=== PATIENT | female | born 1950 | race Caucasian/White ===

== ENCOUNTER 2017-12-23 22:51 | Emergency (ER) | payer OTHER, MEDICAID ==
[~2017-12-23] VITALS: Ht 154.9 cm; Wt 76.2 kg
[~2017-12-23 22:51] MED LIST: A/B OTIC15 ML; CLINDAMYCIN HC300 MG PO; COG1 PO; COL100; DEP250; DEPAKOTE500 MG PO; KEP500 PO; KONSYL PO; LAC PO; LEVAQUIN500 MG PO; MEG40; OLANZAPINE10 MG PO; PRI20; PROMETHAZI6.25 MG/5 PO; RES15 PO; SEROQUEL100 MG PO; SEROQUEL50 M1 PO; SYN25; TRA50 PO; TRAZODONE100 MG PO; [UNRECOGNIZED DRUG - OTHER]; [UNRECOGNIZED DRUG - OTHER]
[2017-12-23 22:57] VITALS: Ht 154.9 cm; Wt 76.2 kg
[2017-12-24 01:07] VITALS: BP 108/58
== END 2017-12-24 01:08 | disposition home or self-care (01) ==
LOC: ED 22:51
DX: S01.01XA Laceration without foreign body of scalp, initial encounter (principal); S01.81XA Laceration without foreign body of other part of head, initial encounter; Z88.8 Allergy status to other drugs, medicaments and biological substances; W18.39XA Other fall on same level, initial encounter; Y93.01 Activity, walking, marching and hiking; Y92.89 Other specified places as the place of occurrence of the external cause; Y99.8 Other external cause status
CPT/HCPCS: 90715

== ENCOUNTER 2018-08-30 18:39 | Emergency (ER) | payer OTHER, MEDICAID ==
[~2018-08-30] VITALS: Ht 152.4 cm; Wt 63.5 kg
[2018-08-30 19:04] VITALS: Ht 152.4 cm; Wt 63.5 kg
[2018-08-30 20:14] LABS: PLATELET COUNT 220 x10^3mcL (130-400); RED CELL DISTRIBUTION WIDTH 12.5 % (11.5-14.5)
[2018-08-30 20:16] LABS: BASOPHIL % 4.4 % (0-2)
[2018-08-30 20:24] LABS: CALCIUM 9.5 mg/dL (8.5-10.1); CARBON DIOXIDE 27.4 mmol/L (21-32); CHLORIDE SERUM 102 mmol/L (98-107); CREATININE SERUM 0.9 mg/dL (0.6-1.0); GFR1 > 60 mL/min; GLUCOSE SERUM 121 mg/dL (74-106); SODIUM SERUM 137 mmol/L (136-145)
[2018-08-30 20:28] LABS: ALKALINE PHOSPHATASE 91 U/L (46-116); ALT/SGPT 14 U/L (14-59); AST/SGOT 8 U/L (15-37); BILIRUBIN TOTAL 0.13 mg/dL (0.20-1.00); TOTAL PROTEIN, SERUM 6.8 g/dL (6.4-8.2)
[2018-08-30 20:30] LABS: ALBUMIN 3.3 g/dL (3.4-5.0)
[2018-08-30] MEDS ORDERED: OLANZAPINE10 MG PO (20:48)
[2018-08-30] MEDS ORDERED: TRAZODONE100 MG PO (20:49)
[2018-08-30] MEDS ORDERED: SYNTHROID0.05 MG PO (20:49)
[2018-08-30] MEDS ORDERED: THICK-IT1 EACH PO (20:50)
[2018-08-30] MEDS ORDERED: LACTULOSE10 GM/152 PO (20:50)
[2018-08-30] MEDS ORDERED: AMO500 PO (20:51)
[2018-08-30 22:07] VITALS: BP 143/66
[2018-08-30 22:35] LABS: microscopic required? YES; urine erythrocyte NEGATIVE (NEGATIVE)
== END 2018-08-30 22:07 | disposition home or self-care (01) ==
LOC: ED 18:39
PROVIDERS: Emergency Medicine
DX: R11.10 Vomiting, unspecified (principal); R05 Cough; Z88.8 Allergy status to other drugs, medicaments and biological substances; R09.81 Nasal congestion
CPT/HCPCS: 36415; 36600; Q0092

== ENCOUNTER 2018-12-09 15:14 | Emergency (ER) | payer OTHER, MEDICAID ==
[~2018-12-09] VITALS: Ht 152.4 cm; Wt 66.2 kg
[~2018-12-09 15:14] MED LIST changes: +AMO500 PO; +LACTULOSE10 GM/152 PO; +SYNTHROID0.05 MG PO; +THICK-IT1 EACH PO
[2018-12-09 15:19] VITALS: Ht 152.4 cm; Wt 66.2 kg
[2018-12-09 16:57] LABS: BASOPHIL % 0.4 % (0-2); PLATELET COUNT 230 x10^3mcL (130-400); RED CELL DISTRIBUTION WIDTH 12.8 % (11.5-14.5)
[2018-12-09 17:05] LABS: CALCIUM 9.1 mg/dL (8.5-10.1); CARBON DIOXIDE 31.6 mmol/L (21-32); CHLORIDE SERUM 98 mmol/L (98-107); CREATININE SERUM 0.6 mg/dL (0.6-1.0); GFR1 > 60 mL/min; GLUCOSE SERUM 114 mg/dL (74-106); SODIUM SERUM 137 mmol/L (136-145)
[2018-12-09 17:11] LABS: ALBUMIN 3.4 g/dL (3.4-5.0); ALKALINE PHOSPHATASE 91 U/L (46-116); ALT/SGPT 19 U/L (14-59); AST/SGOT 12 U/L (15-37); BILIRUBIN TOTAL 0.2 mg/dL (0.20-1.00); TOTAL PROTEIN, SERUM 7.3 g/dL (6.4-8.2)
[2018-12-09 17:17] LABS: UA SPECIFIC GRAVITY <=1.005 (1.005-1.035); microscopic required? YES; urine erythrocyte NEGATIVE (NEGATIVE)
[2018-12-09 19:46] VITALS: BP 150/69
== END 2018-12-09 19:46 | disposition home or self-care (01) ==
LOC: ED 15:14
PROVIDERS: Emergency Medicine
DX: K80.20 Calculus of gallbladder without cholecystitis without obstruction (principal); Z88.8 Allergy status to other drugs, medicaments and biological substances
CPT/HCPCS: 36415; J7030

== ENCOUNTER 2019-10-28 20:12 | Emergency (ER) | payer OTHER, MEDICAID ==
[~2019-10-28] VITALS: Ht 152.4 cm; Wt 72.6 kg
[2019-10-28 20:17] VITALS: Ht 152.4 cm; Wt 72.6 kg
[2019-10-29 00:06] VITALS: BP 140/50
== END 2019-10-29 00:06 | disposition home or self-care (01) ==
LOC: ED 20:12
DX: S09.90XA Unspecified injury of head, initial encounter (principal); Z88.8 Allergy status to other drugs, medicaments and biological substances; E03.9 Hypothyroidism, unspecified; W18.30XA Fall on same level, unspecified, initial encounter; Y93.89 Activity, other specified; Y92.89 Other specified places as the place of occurrence of the external cause; Y99.8 Other external cause status
CPT/HCPCS: 90715; Q0092

== ENCOUNTER 2020-02-23 13:42 | Emergency (ER) | payer OTHER, MEDICAID ==
[~2020-02-23] VITALS: Ht 152.4 cm; Wt 63.5 kg
[2020-02-23 13:51] VITALS: BP 153/68; Ht 152.4 cm; Wt 63.5 kg
== END 2020-02-23 16:30 | disposition home or self-care (01) ==
LOC: ED 13:42
DX: S42.411A Displaced simple supracondylar fracture without intercondylar fracture of right humerus, initial encounter for closed fracture (principal); E03.9 Hypothyroidism, unspecified; Z88.8 Allergy status to other drugs, medicaments and biological substances; Z88.2 Allergy status to sulfonamides; X58.XXXA Exposure to other specified factors, initial encounter; Y93.89 Activity, other specified; Y92.89 Other specified places as the place of occurrence of the external cause; Y99.8 Other external cause status